=== PATIENT | female | born 1955 | race Caucasian/White ===

== ENCOUNTER 2020-05-30 12:44 | Emergency (ER) | payer BC ==
--- NOTE | 2020-05-30 14:19 | ER Document Report ---
ED Medical Screen (RME) - General Chief Complaint: Laceration Stated Complaint: LACERATION/RIGHT FOURTH DIGIT Time Seen by Provider: 05/30/20 14:17 Mode of Arrival: Ambulatory Information source: Patient Notes: 64-year-old female presents to ED for the laceration to her right ring finger. It is actively bleeding bleeding at this time. She will need a tetanus immunization. She is alert oriented respirations regular nonlabored speaking in full sentences. She is allergic to almost every antibiotic there is. She cut it while stabbing and avocado. She is a retired schoolteacher. I have greeted and performed a rapid initial assessment of this patient. A comprehensive ED assessment and evaluation of the patient, analysis of test results and completion of medical decision making process will be conducted by an additional ED providers. - Related Data Allergies/Adverse Reactions: Penicillins Allergy (Verified 05/30/20 14:03) Physical Exam - Vital signs Vitals: Temp Pulse Resp BP Pulse Ox 98.4 F 72 16 156/75 H 98 05/30/20 12:51 05/30/20 12:51 05/30/20 12:51 05/30/20 12:51 05/30/20 12:51 Course - Vital Signs Vital signs: Temp Pulse Resp BP Pulse Ox 98.4 F 72 16 156/75 H 98 05/30/20 12:51 05/30/20 12:51 05/30/20 12:51 05/30/20 12:51 05/30/20 12:51
[2020-05-30] MEDS ORDERED: LIDOCAINE 2% INJ (20 MG/ML) 20 ML MDV INJ ONE (16:56)
[2020-05-30] MEDS ORDERED: DIPH/PERTUSS(ACELL)/TETANUS VAC/PF 0.5 ML SYR (>=10YO) IM ONE (17:01)
--- NOTE | 2020-05-30 17:04 | ER Document Report ---
ED Wound - General Chief Complaint: Laceration Stated Complaint: LACERATION/RIGHT FOURTH DIGIT Time Seen by Provider: 05/30/20 14:17 Mode of Arrival: Ambulatory Notes: This 64-year-old woman presents to the emergency department with a laceration to left ring finger. She was using a knife to cut a avocado and the knife went through the avocado lacerating the tip of her fourth finger. She states that it did bleed and is giving her severe pain. She is unsure of her last tetanus. She denies any other associated injuries. - Related Data Allergies/Adverse Reactions: Cephalosporins Allergy (Verified 05/30/20 14:24) ciprofloxacin [From Cipro] Allergy (Verified 05/30/20 14:24) flosequinan Allergy (Verified 05/30/20 14:24) ketorolac Allergy (Verified 05/30/20 14:24) levofloxacin [From Levaquin] Allergy (Verified 05/30/20 14:24) Penicillins Allergy (Verified 05/30/20 14:03) Sulfa (Sulfonamide Antibiotics) Allergy (Verified 05/30/20 14:24) tromethamine Allergy (Verified 05/30/20 14:24) Past Medical History - General Information source: Patient - Social History Smoking Status: Current Every Day Smoker Family History: Reviewed & Not Pertinent Patient has homicidal ideation: No - Past Medical History Cardiac Medical History: Reports: Hx Hypertension Psychiatric Medical History: Reports: Hx Depression Past Surgical History: Reports: Hx Hysterectomy, Hx Orthopedic Surgery, Hx Tubal Ligation Review of Systems - Review of Systems Notes: Constitutional: Negative for fever. HENT: Negative for sore throat. Eyes: Negative for visual changes. Cardiovascular: Negative for chest pain. Respiratory: Negative for shortness of breath. Gastrointestinal: Negative for abdominal pain, vomiting or diarrhea. Genitourinary: Negative for dysuria. Musculoskeletal: + Laceration left ring finger Skin: Negative for rash. Neurological: Negative for headaches, weakness or numbness. 10 point ROS negative except as marked above and in HPI. Physical Exam - Vital signs Vitals: Temp Pulse Resp BP Pulse Ox 98.4 F 72 16 156/75 H 98 05/30/20 12:51 05/30/20 12:51 05/30/20 12:51 05/30/20 12:51 05/30/20 12:51 - Notes Notes: PHYSICAL EXAMINATION: Physical Exam: General: Well-nourished well-developed in no acute distress HEENT: NC/AT, pupils equal round and reactive to light, MM moist,nares clear, oropharynx clear, airway patent Neck: supple, no adenopathy, no masses. Good range of motion Lungs: clear, no wheezing, no rales no rhonchi CVS: Regular rate and rhythm no murmur gallop or rub Abdomen: Soft, active, nontender, no masses, no hepatosplenomegaly Ext: + Laceration left ring finger proximately 2 cm standing from the distal phalanx palmar surface to the lateral side of the finger. No hemorrhaging at this time, neurologic is intact. Neuro: Alert and responsive, moving all 4 extremities on command, cranial nerves intact, no focal findings Skin: Intact no open lesions, no rash Course - Re-evaluation Re-evalutation: 05/30/20 16:55 Patient is given a Tdap, a laceration repair is performed in the emergency department. I have advised the patient that sutures should be removed within 10 days and she can follow-up with her primary care doctor. Tylenol can be used for pain and to monitor closely for signs of infection. Patient acknowledges understanding of this plan and is in agreement. - Vital Signs Vital signs: Temp Pulse Resp BP Pulse Ox 98.2 F 62 18 139/66 H 100 05/30/20 18:45 05/30/20 18:45 05/30/20 18:45 05/30/20 18:45 05/30/20 18:45 Procedures - Laceration/Wound Repair Left Finger Time completed: 18:35 - Left ring finger distal phalanx Wound length (cm): 2 Wound's Depth, Shape: Other - Horizontal laceration across the distal phalanx Laceration pre-procedure: Shur-Clens applied Anesthetic type: 2% Lidocaine Volume Anesthetic (mLs): 4 Wound explored: Clean Wound Repaired With: Sutures Suture Size/Type: 4:0, Nylon Number of Sutures: 5 - Interrupted sutures Layer Closure?: No Post-procedure wound care: Sterile dressing applied Post-procedure NV exam normal: Yes Complications: No Discharge - Discharge Clinical Impression: Laceration of left ring finger w/o foreign body w/o damage to nail Qualifiers: Encounter type: initial encounter Qualified Code(s): S61.215A - Laceration without foreign body of left ring finger without damage to nail, initial encounter Condition: Good Disposition: HOME, SELF-CARE Instructions: Antibiotic Ointment Protection ([facility]), Laceration Care ([facility]), Tetanus Immunization Given ([facility]) Additional Instructions: You were seen in the emergency department today with a laceration to the left ri ng finger. Sutures were placed and a tetanus update was given. Please change dressing daily apply Neosporin for the first 3 days. Monitor closely for signs of infection return to the emergency department as needed. Suture removal in 10 days. HOME CARE INSTRUCTIONS & INFORMATION: Thank you for choosing us for your medical needs. We hope you're satisfied with the care you received. After you leave, you must properly care for your problem and, at the same time, observe its progress. Any condition can change. Some illnesses can change rapidly over hours or days. If your condition worsens, return to the Emergency Department or see your physician promptly. ABOUT YOUR X-RAYS AND EKG'S: If you had an EKG or X-rays taken, they have been read by the Emergency Physician. The X-rays and EKG's will also be read by a Radiologist or Gas Fitter Apprentice within 24 hours. If discrepancies are noted, you will be notified by telephone. Please be certain the ED has a correct telephone number & address where you can be reached. Also, realize that some fractures or abnormalities do not show up on initial X-rays. If your symptoms continue, see your physician. ABOUT YOUR LABORATORY TEST: If you had laboratory tests, the results have been reviewed by the Emergency Physician. Some test results (for example cultures) may not be available for several days. You will be contacted if any test result shows you need additional treatment. Please be certain the ED has a correct telephone number and address where you can be reached. ABOUT YOUR MEDICATIONS: You will receive instructions on how to take your medicine on the prescription label you receive. Additional information may be provided by the Pharmacy. If you have questions afterwards, call the ED for clarification or further instructions. Some prescribed medications may cause drowsiness. Do not perform tasks such as driving a car or operating machinery without consulting your Pharmacist. If you feel you need a refill of pain medication, your condition will need re-evaluation. Please do not call for a refill of any medication. ABOUT YOUR SIGNATURE: Signature of this document acknowledges to followin. Understanding that you received emergency treatment and that you may be released before al medical problems are known or treated. Please be certain the ED has a correct phone number & address where you can be reached. 2. Acknowledgement that you will arrange for follow-up care as recommended. 3. Authorization for the Emergency Physician to provide information to your follow-up Physician in order to maximize your care. AT ANY TIME, IF YOUR SYMPTOMS CHANGE SIGNIFICANTLY OR WORSEN OR YOU DEVELOP NEW SYMPTOMS, RETURN TO THE EMERGENCY DEPARTMENT IMMEDIATELY FOR RE-EVALUATION. OUR GOAL IS TO PROVIDE EXCELLENT MEDICAL CARE! WE HOPE THAT WE HAVE MET YOUR EXPECTATIONS DURING YOUR EMERGENCY DEPARTMENT VISIT AND THAT YOU FEEL YOU HAVE RECEIVED EXCELLENT CARE!
[2020-05-30 19:05] VITALS: BP 139/66
== END 2020-05-30 18:45 | disposition home or self-care (01) ==
LOC: ER 12:44
PROC: 0HQGXZZ Repair Left Hand Skin, External Approach (ICD-10-PCS; principal; 2020-05-30)
DX: S61.215A Laceration without foreign body of left ring finger without damage to nail, initial encounter (principal); W26.0XXA Contact with knife, initial encounter; Y93.G1 Activity, food preparation and clean up; Z88.1 Allergy status to other antibiotic agents; Z88.0 Allergy status to penicillin; Z88.2 Allergy status to sulfonamides; Z88.8 Allergy status to other drugs, medicaments and biological substances
CPT/HCPCS: 99282; 90471; 90715; 12001; J3490